=== PATIENT | male | born 1970 | race Caucasian/White ===

== ENCOUNTER 2017-06-28 17:10 | Emergency (ER) | payer OTHER ==
[~2017-06-28] VITALS: Ht 182.9 cm; Wt 124.5 kg
[2017-06-28 17:34] VITALS: BP 156/94
--- NOTE | 2017-06-28 20:10 | NUR ---
Pt w/c assisted to bed 4.
--- NOTE | 2017-06-28 20:19 | NUR ---
Patient being evaluated by Dr. Clemens at bedside.
--- NOTE | 2017-06-28 20:24 | NUR ---
47/M bib for evaluation of dizziness, N/V and lethargy x1 month. Pt states the symptoms worsened today. Pt has hx ETOH intoxication, HTN, Hep C, neuropathy, IV drug abuse. Pt reports drinking approximately 6 beers a day. Pt states "I might have a drink this morning but I'm trying to get off of it." Pt also reports decreased hearing in right ear, pt states "You know how when you go swimming and water gets in your ear? That's how it feels." Skin warm, diaphoretic, normal in color for ethnicity. Pt c/o sweating, denies fever. No vomiting noted while in ED bed. AOX4, clear speech. VSS. at bedside.
[2017-06-28] MEDS ORDERED: LORazepam 2 MG/ML VIAL IVP ONE (20:25)
[2017-06-28] MEDS ORDERED: MULTIVITAMIN-12 10 ML, THIAMINE 100 MG, MAGNESIUM SULFATE 50% 2,000 MG, FOLIC ACID 5 MG... IV ONE (20:25)
[2017-06-28] MEDS ORDERED: ONDANSETRON 4 MG/2 ML VIAL IVP ONE (20:25)
[2017-06-28] MEDS ORDERED: KETOROLAC 30 MG/ML VIAL IVP ONE (20:25)
[2017-06-28] MEDS ORDERED: MAGNESIUM SULFATE 50% 1000 MG/2 ML VIAL IV ONE (20:45)
[2017-06-28] MEDS ORDERED: THIAMINE 200 MG/2 ML VIAL ONE (20:45)
[2017-06-28] MEDS ORDERED: MULTIVITAMIN-12 10 ML VIAL IV ONE ×2 (20:45→20:48)
[2017-06-28] MEDS ORDERED: PANTOPRAZOLE 80 MG in NACL 0.9% 100 ML IV SCH (20:55)
[2017-06-28] MEDS ORDERED: NACL 0.9% 1,000 ML IV SCH (21:04)
[2017-06-28] MEDS ORDERED: HYDROcodone/APAP 7.5/325 MG 1 TAB PO PRN (21:05)
[2017-06-28] MEDS ORDERED: ACETAMINOPHEN 325 MG TAB PO PRN (21:05)
[2017-06-28] MEDS ORDERED: DOCUSATE SODIUM 100 MG GELCAP PO PRN (21:05)
[2017-06-28] MEDS ORDERED: ONDANSETRON 4 MG/2 ML VIAL IM/IVP PRN (21:05)
[2017-06-28] MEDS ORDERED: MORPHINE SULFATE 2 MG/ML SYR IVP PRN (21:05)
[2017-06-28] MEDS ORDERED: LORazepam 2 MG/ML VIAL IVP PRN (21:10)
--- NOTE | 2017-06-28 21:12 | NUR ---
Patient does not wish to proceed with medical care recommended by Sarath. Patient given information related to possible complications, up to and including , which could occur as a result of leaving hospital at this time. Patient verbalizes understanding of risks involved leaving against medical advice. Patient has signed AMA form. Patient waiting for to return to take him home. VSS. Pt in no distress at this time.
[2017-06-28 21:52] VITALS: BP 148/65
--- NOTE | 2017-06-28 21:52 | NUR ---
IV removed, catheter intact and site benign. Applied folded 4x4 gauze and tape to stop bleeding.
--- NOTE | 2017-06-28 21:52 | NUR ---
Patient discharged with v/s stable. Written and verbal after care instructions given and explained. Patient alert, oriented and verbalized understanding of instructions. Ambulatory with steady gait. All questions addressed prior to discharge. ID band removed. Patient advised to follow up with PMD. Rx of Zofran ODT 4mg, and Xanax 0.5mg given. Patient educated on indication of medication including possible reaction and side effects. Opportunity to ask questions provided and answered.
[2017-06-29] MEDS ORDERED: LORazepam 1 MG TAB PO SCH (05:00)
[2017-06-29] MEDS ORDERED: MULTIVITAMIN 1 TAB PO SCH (09:00)
[2017-06-29] MEDS ORDERED: THIAMINE 100 MG TAB PO SCH (09:00)
[2017-06-29] MEDS ORDERED: FOLIC ACID 1 MG TAB PO SCH (09:00)
--- NOTE | 2017-07-01 15:12 | NUR ---
CM NOTE RETRO REVIEW FAXED TO [facility] / FAX# [phone], ATTN: BRIDGETTE #[phone]
== END 2017-06-28 21:52 | disposition left against medical advice (07) ==
LOC: MED 17:10 → MIC 21:09 → UNDOADMIN 21:09 → MED 21:52 → UNDODISIN 21:52
DX: K70.10 Alcoholic hepatitis without ascites (principal); K22.6 Gastro-esophageal laceration-hemorrhage syndrome; F10.239 Alcohol dependence with withdrawal, unspecified; Z53.21 Procedure and treatment not carried out due to patient leaving prior to being seen by health care provider; R11.10 Vomiting, unspecified; Y90.3 Blood alcohol level of 60-79 mg/100 ml; R26.9 Unspecified abnormalities of gait and mobility